=== PATIENT | male | born 1970 | race Caucasian/White ===

== ENCOUNTER → 2022-07-27 | Outpatient (REF) | LOC: M PLAIMG 09:35 | PROVIDERS: ATTEND Internal Medicine | DX: Z11.52 Encounter for screening for COVID-19 (principal) ==

== ENCOUNTER 2022-09-29 08:30 | Day surgery (SDC) | payer BC ==
[~2022-09-29] VITALS: Ht 180.3 cm; Wt 113.5 kg
[~2022-09-29 08:30] MED LIST: ACET650T61 PO; AMLO1TAB24 PO; CIDA500T2 PO; HYDR-3490 PO; LIDOCAINE 2% 100MG/5ML SDV (FOR ANES.) As Ordered ONE; LISI40TA4 PO; MELO15TA28 PO; NS 1,000 ML IV ONE; OMEGCAP9 PO; OMEP40CA5 PO; propofoL 500 MG/50 ML VIAL As Ordered ONE
[2022-09-29] MEDS ORDERED: fentaNYL 100 MCG/2 ML INJECTION As Ordered ONE (08:31)
== END 2022-09-29 11:04 | disposition home or self-care (01) ==
LOC: M OPP 08:30
PROVIDERS: ATTEND Internal Medicine Gastroenterology
DX: K63.5 Polyp of colon (principal); K64.0 First degree hemorrhoids; K57.30 Diverticulosis of large intestine without perforation or abscess without bleeding; R19.5 Other fecal abnormalities; K22.89 Other specified disease of esophagus; F17.200 Nicotine dependence, unspecified, uncomplicated; Z79.1 Long term (current) use of non-steroidal anti-inflammatories (NSAID); Z79.899 Other long term (current) drug therapy
CPT/HCPCS: 43239; 45385; 88305; J3010

== ENCOUNTER → 2023-08-19 | Outpatient (CLI) | payer BC ==
[~2023-08-19] MED LIST changes: -LIDOCAINE 2% 100MG/5ML SDV (FOR ANES.) As Ordered ONE; -NS 1,000 ML IV ONE; -propofoL 500 MG/50 ML VIAL As Ordered ONE
[2023-08-27 20:48] LABS: CALPROTECTIN STOOL 117 mcg/g (<50)
[2023-08-28 20:11] LABS: PANCREATIC ELASTASE STOOL > 500 mcg/g (>200)
== END ==
LOC: M LAB 14:00
PROVIDERS: ATTEND Internal Medicine Gastroenterology
DX: R19.7 Diarrhea, unspecified (principal)